=== PATIENT | male | born 2005 | race Caucasian/White ===

== ENCOUNTER 2024-10-11 06:50 | Emergency (ER) | payer BC ==
[~2024-10-11] VITALS: Ht 185.4 cm; Wt 59.0 kg
[2024-10-11] MEDS ORDERED: Gelatin Sponge 1 EACH SPON T ONE (07:05)
[2024-10-11] MEDS ORDERED: Bactroban Oint22 GM T (07:17)
== END 2024-10-11 07:52 | disposition home or self-care (01) ==
LOC: ED 06:50
DX: R04.0 Epistaxis (principal)

== ENCOUNTER 2024-10-26 16:38 | Emergency (ER) | payer BC ==
[~2024-10-26] VITALS: Ht 185.4 cm; Wt 61.2 kg
[~2024-10-26 16:38] MED LIST: Bactroban Oint22 GM T
[2024-10-26] MEDS ORDERED: CYCLOBENZAPRINE10 MG PO (20:56)
[2024-10-26] MEDS ORDERED: Cyclobenzaprine Hydrochlorid 10 MG TAB PO ONE (21:00)
== END 2024-10-26 21:09 | disposition home or self-care (01) ==
LOC: ED 16:38
DX: S39.012A Strain of muscle, fascia and tendon of lower back, initial encounter (principal); Z79.899 Other long term (current) drug therapy; X58.XXXA Exposure to other specified factors, initial encounter; Y93.89 Activity, other specified; Y92.89 Other specified places as the place of occurrence of the external cause; Y99.8 Other external cause status